=== PATIENT | male | born 1985 | race Caucasian/White ===

== ENCOUNTER 2018-04-07 14:38 | Emergency (ER) | payer SELFPAY ==
[2018-04-07 15:48] VITALS: BP 127/75
--- NOTE | 2018-04-07 16:00 | UC ---
Head Injury HPI - HPI Summary HPI Summary: patient with pain and headache after fall, from a standing position and he fell onto a chair on its side now with persistent pain and headache, pain begins at the base of the neck . was forgetful after this episode hard for him to concentrate , denies LOC with the injury - History Of Current Complaint Chief Complaint: Ubaldo Stated Complaint: HEAD INJURY Time Seen by Provider: 04/07/18 15:51 Hx Obtained From: Patient Onset/Duration: Sudden Onset Severity Currently: Moderate Pain Intensity: 6 Character: Sharp Aggravating Factor(s): Other - moving neck extension flexion Associated Signs And Symptoms: Positive: Negative - Risk Factors SDH Risk Factor: Negative - Allergies/Home Medications Allergies/Adverse Reactions: Allergies Allergy/AdvReac Type Severity Reaction Status Date / Time No Known Allergies Allergy Verified 04/07/18 15:49 Home Medications: Home Medications NK [No Home Medications Reported] 04/07/18 [History Confirmed 04/07/18] PMH/Surg Hx/FS Hx/Imm Hx - Surgical History Surgical History: None - Social History Alcohol Use: None Substance Use Type: None Smoking Status (MU): Never Smoked Tobacco Review of Systems All Other Systems Reviewed And Are Negative: Yes Physical Exam Triage Information Reviewed: Yes Appearance: Well-Appearing Vital Signs: Initial Vital Signs Temp 36.9 C 04/07/18 15:42 Pulse 86 04/07/18 15:42 Resp 12 04/07/18 15:42 BP 127/75 04/07/18 15:42 Pulse Ox 100 04/07/18 15:42 Vital Signs Reviewed: Yes Eye Exam: Normal Eyes: Positive: Conjunctiva Clear ENT: Positive: Normal ENT inspection Neck exam: Other - pain on flexion, pain in the midline of the cervical neck Neck: Positive: Supple Respiratory Exam: Normal Respiratory: Positive: Chest non-tender Cardiovascular Exam: Normal Abdominal Exam: Normal Neurological: Positive: Other: - dtrs symmetrical, toes downgoing, gait normal, negative babinski, negative clonus gcs 15 Head Injury Course/Dx - Differential Dx/Diagnosis Provider Diagnoses: head trauma. cervical sprain Discharge - Sign-Out/Discharge Documenting (check all that apply): Patient Departure All imaging exams completed and their final reports reviewed: Yes - Discharge Plan Condition: Good Disposition: HOME Patient Education Materials: Concussion (ED), Cervical Sprain (ED) Referrals: Mumtaz Cevallos MD [Primary Care Provider] - Additional Instructions: FOLLOW UP WITH PRIMARY CARE DOCTOR IS SYMPTOMS PERSIST - Billing Disposition and Condition Condition: GOOD Disposition: Home
--- NOTE | 2018-04-07 16:49 | RAD ---
Indication: Neck pain post fall. Comparison: No relevant prior exams available on the [facility] PACS for comparison. Technique: Noncontrast CT vertex of skull through foramen magnum. Report: The sulci, ventricles, and basal cisterns are normal for age. Charles matter white matter differentiation is preserved without evidence for edema. No intra or extra axial hemorrhage is detected. Calcified choroid plexus at the lateral ventricles without concern. Unremarkable visualized orbital contents. Negative for calvarial or skull base fracture. Negative for scalp hematoma. The visualized paranasal sinuses and mastoid air spaces are clear. IMPRESSION: #. No CT evidence for traumatic brain injury. Negative exam.
--- NOTE | 2018-04-07 16:56 | RAD ---
INDICATION: Neck pain post fall. COMPARISON: No relevant prior exams available on the [facility] [place] for comparison. TECHNIQUE: Multidetector CT images foramen magnum to lung apices without contrast. Multiplanar reformation. REPORT: Normal vertebral alignment accounting for exam positioning without spondylolisthesis or subluxation at any level. Negative for cervical vertebral body or posterior element fracture. Negative for paravertebral hematoma. Multilevel mild cervical spine degenerative spondylosis. No significant acquired spinal stenosis evident at any level. IMPRESSION: #. No CT evidence for traumatic cervical spine injury.
== END 2018-04-07 17:35 | disposition home or self-care (01) ==
LOC: UCEAST 14:38
DX: S09.90XA Unspecified injury of head, initial encounter (principal); S13.9XXA Sprain of joints and ligaments of unspecified parts of neck, initial encounter; W18.09XA Striking against other object with subsequent fall, initial encounter; Y92.9 Unspecified place or not applicable
CPT/HCPCS: 70450; 72125; 99211; G0463

== ENCOUNTER 2018-04-14 07:02 | Emergency (ER) | payer SELFPAY ==
[2018-04-14 07:19] VITALS: BP 133/88
--- NOTE | 2018-04-14 07:54 | UC ---
Headache HPI - HPI Summary HPI Summary: PT SUSTAINED A CONCUSSION 1 WEEK AGO AFTER FALLING FROM A CHAIR. DIDN'T STRIKE HIS HEAD BUT CITLALY HIS BODY AND AFTER HAD PERSISTENT SON. FEELS BETTER OVERALL BUT IS HERE C/O SON THAT STILL OCCURS AFTER HE HAS BEEN UP FOR A WHILE. FEELS FATIGUED. DENIES NAUSEA, VISUAL DISTURBANCE OR IRRITABILITY. - History Of Current Complaint Chief Complaint: UCHeadache Stated Complaint: HEADACHE Time Seen by Provider: 04/14/18 07:25 Hx Obtained From: Patient Onset/Duration: Gradual Onset, Lasting Days, Still Present Pain Intensity: 0 Pain Scale Used: 0-10 Numeric Timing: Intermittent, Lasting: Character: Dull Aggravating Factor(s): Position Change Allevating Factor(s): Rest Associated Signs And Symptoms: Negative: Dizziness, Seizure, Nausea, Vomiting, Fever, Neck Pain, Neck Stiffness, Decreased LOC, Visual Changes - Allergies/Home Medications Allergies/Adverse Reactions: Allergies Allergy/AdvReac Type Severity Reaction Status Date / Time No Known Allergies Allergy Verified 04/14/18 07:20 Home Medications: Home Medications Ibuprofen TAB* [Advil TAB*] 200 mg PO Q6H PRN 04/14/18 [History Confirmed ] PMH/Surg Hx/FS Hx/Imm Hx Previously Healthy: Yes - Surgical History Surgical History: None - Family History Known Family History: Negative: Hypertension - Social History Alcohol Use: None Substance Use Type: None Smoking Status (MU): Never Smoked Tobacco Review of Systems Constitutional: Negative Eyes: Negative ENT: Negative Respiratory: Negative Cardiovascular: Negative Gastrointestinal: Negative Neurological: Headache All Other Systems Reviewed And Are Negative: Yes Physical Exam Triage Information Reviewed: Yes Appearance: Well-Appearing, No Pain Distress, Well-Nourished Vital Signs: Initial Vital Signs Temp 97.7 F 04/14/18 07:14 Pulse 69 04/14/18 07:14 Resp 16 04/14/18 07:14 BP 133/88 04/14/18 07:14 Pulse Ox 98 04/14/18 07:14 Vital Signs Reviewed: Yes Eyes: Positive: Conjunctiva Clear ENT: Positive: Hearing grossly normal, Pharynx normal, TMs normal Neck: Positive: Supple Respiratory Exam: Normal Cardiovascular Exam: Normal Abdomen Description: Positive: Soft Musculoskeletal: Positive: No Edema Neurological: Positive: Alert, Muscle Tone Normal Psychological: Positive: Age Appropriate Behavior Skin: Negative: rashes Headache Course/Dx - Differential Dx/Diagnosis Provider Diagnoses: POST CONCUSSIVE SYNDROME Discharge - Sign-Out/Discharge Documenting (check all that apply): Patient Departure All imaging exams completed and their final reports reviewed: No Studies - Discharge Plan Condition: Stable Disposition: HOME Patient Education Materials: Post Concussion Syndrome (ED) Forms: *Work Release Referrals: Montana Dowling MD [Medical Doctor] - 1 Week Mumtaz Cevallos MD [Primary Care Provider] - Tristan Rodriguez MD [Medical Doctor] - If Needed Additional Instructions: YOU ARE STILL WITHIN A NORMAL AMOUNT OF TIME TO BE RECOVERING FROM A CONCUSSION. IT IS IMPORTANT TO STAY WELL HYDRATED AND RESTED. BOTH PHYSICAL AND COGNITIVE REST. FOLLOW-UP WITH DR. DOWLING. YOU MAY ALSO CONSIDER NEUROLOGY OR THE CONCUSSION CLINIC IF YOUR SYMPTOMS ARE NOT IMPROVING. GO TO THE ED WITHOUT FAIL IF YOU DEVELOP UNEQUAL PUPILS, VISUAL DISTURBANCE, GAIT INSTABILITY, SPEECH DIFFICULTY, NAUSEA/VOMITING, WORSENING HEADACHE, DIZZINESS, CONFUSION, WEAKNESS OR ANY OTHER CONCERNING SYMPTOMS. [facility] [employer] [facility] [facility] [phone] (M-F 8AM-4PM) [email or web address] (FOR HELP, INFO OR TO CONNECT WITH A SUPPORT GROUP) - Billing Disposition and Condition Condition: STABLE Disposition: Home
== END 2018-04-14 08:05 | disposition home or self-care (01) ==
LOC: UCEAST 07:02
DX: F07.81 Postconcussional syndrome (principal)
CPT/HCPCS: 99211; G0463

== ENCOUNTER 2019-01-14 07:00 | Day surgery (SDC) | payer BC, OTHER ==
--- NOTE | 2019-01-11 18:59 | HP ---
CC: Dr. Mumtaz Cevallos * ADMITTING HISTORY AND PHYSICAL: DATE OF ADMISSION: 01/14/19 ADMITTING DIAGNOSIS: Elective sterilization. PLANNED PROCEDURE: Bilateral vasectomy with intravenous sedation. SURGEON: Dr. Rivera. HISTORY OF PRESENT ILLNESS: Brad Pizarro is a 33-year-old gentleman whose is and has 2 children. He is interested in vasectomy for permanent sterilization and has a history of vasovagal episode and was extremely uncomfortable during the examination in the office, and because of those reasons, I have suggested that he have a vasectomy done in the hospital with intravenous sedation. PAST MEDICAL HISTORY: Unremarkable. Specifically, there is no history of diabetes mellitus or any other major systemic illness. PAST SURGICAL HISTORY: Negative. MEDICATIONS ON ADMISSION: None. ALLERGIES: No known drug allergies. SOCIAL HISTORY: Smoking history: He is a nonsmoker. FAMILY HISTORY: Noncontributory. REVIEW OF SYSTEMS: He is otherwise in excellent health. He denies any chest pain or shortness of breath. PHYSICAL EXAMINATION GENERAL: Reveals a pleasant, healthy appearing young gentleman. VITAL SIGNS: Blood pressure is 126/86, pulse 78 per minute and regular, temperature 96.5, oxygen saturation 98% on room air. LUNGS: Clear bilaterally. CARDIOVASCULAR: Regular rate and rhythm. S1, S2. ABDOMEN: Soft without masses. Testicles are descended bilaterally and are normal with the left testicle being slightly higher up in the scrotum. The patient was extremely uncomfortable during the scrotal examination. That coupled with the fact that he has a history of vasovagal episode made me recommend a vasectomy in the operating room with sedation. I discussed the procedure in detail including possible risks of bleeding, infection, persistent testicular pain, and failure of vasectomy. PLAN: Bilateral vasectomy with intravenous sedation. [id number]/[facility] #: [id number] MTDD
[~2019-01-14 07:00] MED LIST: Acetaminophen TAB* 325 MG PO ONE; Buffered Lidocaine 1% SYRIN* 1 ML/SYRINGE INTRADERM ONE; Dexamethasone TAB* 4 MG PO ONE; DiMENhydriNATE IV* 50 MG/ML VIAL IV PUSH PRN; Famotidine IV* 10 MG/ML 2 ML (20 mg) IV ONE; Lactated Ringers 1000 ML Bag* 1,000 ML IV SCH; Morphine 4 MG/ML VIAL (1 ml) 4 MG/ML VIAL IV PRN; Naloxone* 0.4 MG/ML 1 ML VIAL IV PRN; Ondansetron ODT TAB* 4 MG PO ONE; PROCHLORPERAZINE INJ 5 MG/ML 2 ML VIAL IV PRN; Scopolamine 1.5 mg* PATCH TRANSDERM PRN; celeCOXIB CAP* 200 MG PO ONE; fentaNYL* 50 MCG/ML 2 ML VIAL (100 MCG VIAL) IV PRN; oxyCODONE/Acetamin 5/325 MG* TAB PO PRN
[2019-01-14] MEDS ORDERED: cefTRIAXone(*) 1 GM ADVAN/BAG ONE (07:33)
[2019-01-14] MEDS ORDERED: Buffered Lidocaine 1% SYRIN* 1 ML/SYRINGE INTRADERM ONE (07:33)
[2019-01-14] MEDS ORDERED: celeCOXIB CAP* 200 MG ONE (07:43)
[2019-01-14] MEDS ORDERED: Famotidine IV* 10 MG/ML 2 ML (20 mg) ONE (07:43)
[2019-01-14] MEDS ORDERED: Acetaminophen TAB* 325 MG ONE (07:43)
[2019-01-14] MEDS ORDERED: Ondansetron ODT TAB* 4 MG ONE ×3 (07:43→07:45)
[2019-01-14] MEDS ORDERED: Lidocaine 1% INJ* 10 MG/ML 30 ML SDV ONE (08:08)
[2019-01-14] MEDS ORDERED: Dexamethasone TAB* 4 MG ONE (08:15)
[2019-01-14] MEDS ORDERED: KETAMINE HCL* 50 MG/ML 10 ML VIAL ONE (08:27)
[2019-01-14] MEDS ORDERED: fentaNYL* 50 MCG/ML 2 ML VIAL (100 MCG VIAL) ONE (08:27)
[2019-01-14] MEDS ORDERED: Midazolam* 1 MG/ML 5 ML VIAL (5 MG) ONE (08:28)
[2019-01-14] MEDS ORDERED: Propofol* 500 MG/50 ML BTL ONE (09:25)
[2019-01-14] MEDS ORDERED: Lidocaine 2% PF * 5 ML VIAL ONE (09:25)
[2019-01-14 11:00] VITALS: BP 115/79
--- NOTE | 2019-01-14 21:31 | OP ---
CC: Dr. Mumtaz Cevallos; Dr. Rivera OPERATIVE SUMMARY: DATE OF OPERATION: 01/14/19 DATE OF : 81 SURGEON: Adolfo Rivera MD ANESTHESIOLOGIST: Dr. Doshi. ANESTHESIA: Local plus intravenous sedation. PRE-OP DIAGNOSIS: Elective sterilization. POST-OP DIAGNOSIS: OPERATIVE PROCEDURE: Bilateral vasectomy. COMPLICATIONS: None. BLOOD LOSS: Minimal. SPECIMEN: Right and left vas deferens. POSTOPERATIVE CONDITION: Stable. INDICATION: Brad Pizarro is a 33-year-old gentleman who desires bilateral vasectomy for perma nent sterilization. He has a history of vasovagal episode and is being brought in for vasectomy in [facility] operating room with intravenous sedation. DESCRIPTION OF PROCEDURE: After induction of intravenous sedation, external genitalia was prepped an d draped in the usual sterile fashion. I was able to identify the vas deferens in the left side of [facility] scrotum and the skin and subcutaneous tissue was infiltrated with 1% Xylocaine local anesthetic. A small incision was made and the vas deferens was delivered through the incision. A small segment o f the vas was excised and the 2 divided ends were controlled with the use of Hemoclip with 2 Hemoclip s being placed on each end. The divided ends were then allowed to brought back into the normal anato kristal position and the skin and subcutaneous tissue was approximated with 2 interrupted suture of 4-0 c hromic. An identical procedure was carried out on the right side once again using local anesthetic and once a gain a segment of the vas was excised. All sponge and needle counts were corrected at the end of the procedure. Dry sterile dressing was applied. The patient tolerated the procedure satisfactorily an d was transferred back to recovery area in stable condition. [id number]/[facility] #: [id number]
[2019-01-17] MEDS ORDERED: Scopolamine PATCH Remove* 1 NOTE MISC PATCH OFF ONE (06:57)
== END 2019-01-14 11:21 | disposition home or self-care (01) ==
LOC: OR 07:00
PROVIDERS: ATTEND Urology
DX: Z30.2 Encounter for sterilization (principal); F41.9 Anxiety disorder, unspecified; Z87.898 Personal history of other specified conditions
CPT/HCPCS: 88302; A9270-GY; J0696; J2250; J2704; J3010; J8540